=== PATIENT | male | born 1990 | race Hispanic/Latino ===

== ENCOUNTER 2018-12-28 22:33 | Emergency (ER) | payer OTHER ==
[~2018-12-28] VITALS: Ht 170.2 cm; Wt 71.7 kg
== END 2018-12-29 00:22 | disposition home or self-care (01) ==
LOC: ED 22:33
DX: S31.21XA Laceration without foreign body of penis, initial encounter (principal); X58.XXXA Exposure to other specified factors, initial encounter
CPT/HCPCS: 99283

== ENCOUNTER 2020-01-10 10:05 | Emergency (ER) | payer OTHER ==
[~2020-01-10] VITALS: Ht 162.6 cm; Wt 63.5 kg
[2020-01-10] MEDS ORDERED: NORCO 5-325 TA1 EACH PO (12:10)
== END 2020-01-10 12:21 | disposition home or self-care (01) ==
LOC: ED 10:05
DX: S43.015A Anterior dislocation of left humerus, initial encounter (principal); X50.9XXA Other and unspecified overexertion or strenuous movements or postures, initial encounter
CPT/HCPCS: 23650; 73030; 99283-25; J1170; J2704